=== PATIENT | male | born 1990 | race Caucasian/White ===

== ENCOUNTER 2022-05-30 17:52 | Emergency (ER) | payer OTHER, SELFPAY ==
--- NOTE | ~2022-05-30 | XR_ITS ---
EXAMINATION: XR HAND, LEFT CLINICAL INFORMATION: Trauma fifth digit COMPARISON: None TECHNIQUE: PA, lateral, and oblique views of the left hand. FINDINGS: Soft tissue irregularity involving the distal aspect of the fifth finger is consistent with laceration. I do not appreciate any radiopaque foreign bodies within the soft tissue. There is no underlying fracture noted of the fifth distal phalanx. Other visualized portions of the left hand are unremarkable. XR/XR hand LT 2V IMPRESSION: Laceration of the distal fifth finger without underlying fracture or radiopaque foreign body.
[2022-05-30 19:33] VITALS: BP 154/101; PULSE 68; RESP 16; TEMP 36.8; O2SAT 99; BMI 36.5
[2022-05-30] MEDS: Ibuprofen 600 MG TABLET PO (19:39)
[2022-05-30 20:13] VITALS: BP 168/86; PULSE 73; RESP 16; TEMP 36.7; O2SAT 98
--- NOTE | 2022-05-30 20:44 | ED.WOUNDLAC ---
HPI - Wound/Laceration General Chief Complaint: Wound/Laceration Stated Complaint: Lac Seth Jiménez Sent By [facility] Time Seen by Provider: 05/30/22 20:39 Source: patient Mode of arrival: ambulatory Limitations: no limitations History of Present Illness HPI narrative: Patient presents emergency department for evaluation of a laceration to the left 5th digit. He was sent here from in urgent care. He states that while at work he sustained the laceration from a blade on a machine used to cut [place]. Small amount of active bleeding, constant. He states that part of the nail is missing. The area is painful. Denies numbness, tingling, impaired sensation, or cold sensation. Related Data Previous Rx's Medication Instructions Recorded cephalexin 500 mg capsule 500 mg PO QID 5 days #20 caps 05/30/22 Allergies Allergy/AdvReac Type Severity Reaction Status Date / Time No Known Allergies Allergy Unverified 07/08/20 16:07 [No Known Allergies*] Review of Systems Review of Systems: Skin: Positive laceration Yes all other systems are reviewed and are negative [facility] Past Medical History Attestation statement: The following information was validated with the patient. Source: old records reviewed Social History Social History Advance Directives: No Advance Directives Information Provided: No Physical Exam Vital Signs: Vital Signs: Last Vital Signs Temp 98.0 F 05/30/22 20:13 Pulse 73 05/30/22 20:13 Resp 16 05/30/22 20:13 BP 168/86 H 05/30/22 20:13 Pulse Ox 98 05/30/22 20:13 O2 Del Method 05/30/22 20:13 BMI result Body Mass Index 36.5 Appearance: Alert.?Oriented to person, place and time. No acute distress.?Normal affect. Neck: Normal inspection.? Neck supple.?? CVS: Heart sounds normal. Normal heart rate and rhythm.? Pulses normal.?? Respiratory: No respiratory distress.? Lung sounds clear to auscultation bilaterally?? Abdomen: Soft and non-tender. Skin: Skin warm and dry.? Normal skin color.? Extremities: No lower extremity edema.? Full AROM to left hand and digits, 5th digit with full extension and flexion. Dorsal distal tip avulsion, partial avulsion of the nail, active bleeding. Neuro: Moves all extremities spontaneously. Sensation intact bilaterally. No motor deficits. Ambulates with normal steady gait. Course Course Course Narrative: Patient is a 31-year-old male with no significant past medical history presents emergency department for evaluation of a laceration to the left 5th digit from a machine. Dorsal distal tip of the 5th digit is avulsed with partial avulsion of the nail. Neurovascularly intact. No impairment of function to the left hand. Tdap updated. Finger cleansed with Betadine and saline. X-ray reveals no acute fracture, dislocation, or bony avulsion. Surgicel placed to stop bleeding. Wrapped with clean dry dressing. Discussed reasons to return back to the emergency department, worsening signs and symptoms, signs of infection. Advised outpatient follow-up with his primary care provider. Given prophylactic antibiotics. Patient discharged in stable condition. MDM - Wound/Laceration Medical Records Attestation: I reviewed the patient's medical records. Imaging Data XR wrist: Radiologist's impression: XR/XR hand LT 2V IMPRESSION: Laceration of the distal fifth finger without underlying fracture or radiopaque foreign body. Discharge Plan Discharge Clinical Impression: Avulsion of skin Patient Disposition: Home, Self-Care Additional Instructions: Be sure to keep the area dry for 48-72 hours. After that gently soak the finger in warm water and removed the dressing. You have been given an antibiotic to prevent infection, please complete this entire course. Contact your primary care provider to arrange for a follow-up visit. If you develop redness, swelling, pus-like drainage, increasing pain, fevers, chills you should have this re-evaluated. Return to the emergency department for any new or worsening symptoms or concerns. Prescriptions: New cephalexin 500 mg capsule 500 mg PO QID 5 Days Qty: 20 0RF Stand Alone Forms: Work/School Release Interventions: ED Discharge Assessment Last Done: 05/30/22 21:56 Discharge Date/Time: 05/30/22 21:56
[2022-05-30] MEDS: Diphth,Pertus(ACell),Tet Adult 0.5 ML SYRINGE IM (21:49)
== END 2022-05-30 21:56 | disposition home or self-care (01) ==
PROVIDERS: Emergency Provider Emergency Medicine
DX: S61.217A Laceration without foreign body of left little finger without damage to nail, initial encounter (principal); W31.89XA Contact with other specified machinery, initial encounter; Y93.89 Activity, other specified; Y92.59 Other trade areas as the place of occurrence of the external cause; Y99.0 Civilian activity done for income or pay
CPT/HCPCS: 12001; 73120; 90471; 90715; 99283; 99284